=== PATIENT | female | born 1975 | race Caucasian/White ===

== ENCOUNTER 2016-11-02 17:13 | Emergency (ER) | payer SELFPAY ==
[2016-11-02] MEDS ORDERED: Aspirin 81 MG Tab.Chew PO ONE (17:42)
--- NOTE | 2016-11-02 18:10 | EDM.PDOC ---
ED HISTORY OF PRESENT ILLNESS - General Chief Complaint: Chest Pain Stated Complaint: CHEST PN, SHAKEY, DIZZY Time Seen by Provider: 11/02/16 17:28 Source of Information: Reports: Patient, RN notes reviewed - History of Present Illness INITIAL COMMENTS - FREE TEXT/NARRATIVE: 40 year old female comes in with onset of palpiations last evening continuing today. Was started on prednisone 3 days ago for rash upper abd and back. Did not take the prednisone today after onset of palpitations last evening. Also feels achy and burning discomfort upper mid abd without radiation. No pain up into chest or into shoulder or arm. No nausea, vomiting, cough, fever or chills. She does smoke. Family hx heart problems. Admits to drinking quite a bit of coffee and soda daily. 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 Other Musculoskeletal History: Left shoulder - Past Surgical History HEENT Surgical History: Reports: Other (see below) Other HEENT Surgeries/Procedures: wisdom teeth GI Surgical History: Reports: Cholecystectomy Female Surgical History: Reports: Tubal ligation Musculoskeletal Surgical History: Reports: Other (see below) Other Musculoskeletal Surgeries/Procedures:: bunion surgery; and surgery for broken arm Social & Family History - Tobacco Use Smoking Status *Q: Current Every Day Smoker Years of Tobacco use: 27 Packs/Tins Daily: 0.5 Second Hand Smoke Exposure: Yes - Caffeine Use Caffeine Use: Reports: Coffee, Soda - Alcohol Use Days Per Week of Alcohol Use: 0 - Recreational Drug Use Recreational Drug Use: No Drug Use in Last 12 Months: No ED ROS GENERAL - Review of Systems Review Of Systems: See Below Constitutional: Denies: fever, chills, diaphoresis HEENT: Denies: Sinus problem, Throat pain Respiratory: Denies: Shortness of Breath, Wheezing, Pleuritic Chest Pain, Cough Cardiovascular: Reports: Palpitations. Denies: Chest pain, Lightheadedness GI/Abdominal: Reports: Abdominal pain (upper mid abd) Musculoskeletal: Denies: neck pain, shoulder pain, arm pain, back pain Skin: Reports: no symptoms Neurological: Denies: Numbness, Tingling ED EXAM, GENERAL - Physical Exam Exam: See Below General Appearance: alert, anxious Eye Exam: bilateral eye: PERRL Throat/Mouth: Normal inspection, Normal oropharynx Head: atraumatic. No: facial swelling Neck: supple, full range of motion Respiratory/Chest: no respiratory distress, lungs clear, normal breath sounds. No: rhonchi, wheezing, stridor Cardiovascular: regular rate, rhythm GI/Abdominal: soft, tender (mild tenderness upper mid abd) Back Exam: No: CVA tenderness (L), CVA tenderness (R) Extremities: normal inspection, normal range of motion. No: pedal edema, leg pain Neurological: alert, oriented, no motor/sensory deficits Skin Exam: Warm, Dry, Normal color EKG INTERPRETATION EKG Date: 11/02/16 Rhythm: NSR Rate (beats/min): 81 ST-T: depressed (t waves are mildly depressed inf. leads, mild st depression V3- V6) Course - Vital Signs Last Recorded V/S: Last Vital Signs Temp 98.4 F 11/02/16 17:22 Pulse 63 11/02/16 19:34 Resp 14 11/02/16 19:34 BP 116/79 11/02/16 19:34 Pulse Ox 100 11/02/16 19:34 - Orders/Labs/Meds Orders: Active Orders 24 hr Category Date Time Status EKG Documentation Completion [RC] URGENT Care 11/02/16 17:31 Active Labs: Laboratory Tests 11/02/16 11/02/16 Range/Units 17:55 17:55 WBC 9.22 (3.98-10.04) K/mm3 RBC 4.25 (3.98-5.22) M/mm3 Hgb 13.0 (11.2-15.7) gm/L Hct 39.7 (34.1-44.9) % MCV 93.4 (79.4-94.8) fl MCH 30.6 (25.6-32.2) pg MCHC 32.7 (32.2-35.5) g/dl RDW Std Deviation 45.8 (36.4-46.3) fL Plt Count 345 (182-369) K/mm3 MPV 9.0 L (9.4-12.3) fl Neut % (Auto) 44.0 (34.0-71.1) % Lymph % (Auto) 46.0 (19.3-51.7) % Orange % (Auto) 8.0 (4.7-12.5) % Eos % (Auto) 1.5 (0.7-5.8) Baso % (Auto) 0.2 (0.1-1.2) % Neut # (Auto) 4.05 (1.56-6.13) K/mm3 Lymph # (Auto) 4.24 H (1.18-3.74) K/mm3 Orange # (Auto) 0.74 H (0.24-0.36) K/mm3 Eos # (Auto) 0.14 (0.04-0.36) K/mm3 Baso # (Auto) 0.02 (0.01-0.08) K/mm3 Sodium 143 (136-145) mEq/L Potassium 3.3 L (3.5-5.1) mEq/L Chloride 107 (98-107) mEq/L Carbon Dioxide 28 (21-32) mEq/L Anion Gap 11.3 (5-15) BUN 11 (7-18) mg/dL Creatinine 0.9 (0.55-1.02) mg/dL Est Cr Clr Drug Dosing 65.06 mL/min Estimated GFR (MDRD) > 60 (>60) mL/min BUN/Creatinine Ratio 12.2 L (14-18) Glucose 103 (74-106) mg/dL Calcium 8.9 (8.5-10.1) mg/dL Total Bilirubin 0.2 (0.2-1.0) mg/dL AST 6 L (15-37) U/L ALT 14 (14-59) U/L Alkaline Phosphatase 58 (46-116) U/L Troponin I < 0.017 (0.00-0.056) ng/mL Total Protein 6.6 (6.4-8.2) g/dl Albumin 3.6 (3.4-5.0) g/dl Globulin 3.0 gm/dL Albumin/Globulin Ratio 1.2 (1-2) Meds: Medications Discontinued Medications Generic Name Dose Route Start Last Admin Trade Name Freq PRN Reason Stop Dose Admin Aspirin 324 mg 11/02/16 17:42 11/02/16 17:53 Aspirin PO 11/02/16 17:43 324 mg ONETIME ONE Administration - Re-Assessments/Exams Free Text/Narrative Re-Assessment/Exam: 11/03/16 17:20 labs are good, trop neg as expected. K+ mildly low at 3.3, discharge instr. as documented. Departure - Departure Time of Disposition: 19:22 Disposition: Home, Self-Care 01 Condition: fair Clinical Impression: Heart palpitations, Hypokalemia Gastritis Qualifiers: Gastritis type: unspecified gastritis Chronicity: acute Gastritis bleeding: without bleeding Qualified Code(s): K29.00 - Acute gastritis without bleeding Instructions: Gastritis, Adult, [id number], Hypokalemia, Palpitations, Easy- to-Read Referrals: PCP,None [Primary Care Provider] - Forms: ED Department Discharge Additional Instructions: your potassium is mildly low this evening, fruit and vegetables are good natural sources of potassium, bananas and potatoes in particular, drink plenty of water to maintain hydration, continue to not take further prednisone, try reduce caffiene intake, stop smoking, try get out walk, exercise as much as you can. Follow up with your regular medical provider as needed, return to ED as needed. - My Orders Last 24 Hours: My Active Orders 11/02/16 17:31 EKG Documentation Completion [RC] URGENT - Assessment/Plan Last 24 Hours: My Active Orders 11/02/16 17:31 EKG Documentation Completion [RC] URGENT
[2016-11-02 19:38] VITALS: BP 116/79
== END 2016-11-02 19:34 | disposition home or self-care (01) ==
LOC: JD.ED 17:13
DX: R00.2 Palpitations (principal); K29.00 Acute gastritis without bleeding; E87.6 Hypokalemia; K21.9 Gastro-esophageal reflux disease without esophagitis; F17.200 Nicotine dependence, unspecified, uncomplicated; Z79.899 Other long term (current) drug therapy
CPT/HCPCS: 36415; 80053; 84484; 85025; 93005; 99285; A9270; 99284

== ENCOUNTER 2016-12-02 08:07 | Day surgery (SDC) | payer SELFPAY ==
[~2016-12-02 08:07] MED LIST: Lactated Ringers 1,000 ML IV SCH; Lidocaine 1%/Sod Bicarbonate in NS 8.4% 1 ML Syringe IV PRN; Sodium Chloride 0.9% 10 ML Syringe FLUSH PRN
--- NOTE | 2016-12-02 08:46 | PCM.PREANE ---
Preanesthetic Assessment - Anesthesia/Transfusion/Family Hx Anesthesia History: Prior Anesthesia Without Reaction Family History of Anesthesia Reaction: No Transfusion History: No Prior Transfusion(s) - Review of Systems General: No Symptoms Pulmonary: No Symptoms Cardiovascular: No Symptoms, Palpitations (1 month ago in ER- since stopped because of low K and prednisone) Gastrointestinal: Abdominal pain Neurological: No Symptoms Other: Reports: None - Physical Assessment NPO Status Date: 12/01/16 NPO Status Time: 22:00 O2 Sat by Pulse Oximetry: 100 Respiratory Rate: 16 Vital Signs: Last Vital Signs Temp 97.3 F 12/02/16 08:15 Pulse 72 12/02/16 08:15 Resp 16 12/02/16 08:15 BP 109/74 12/02/16 08:15 Pulse Ox 100 12/02/16 08:15 Height: 5 ft 2 in Weight: 70.307 kg ASA Class: 2 Mental Status: Alert & Oriented x3 Airway Class: Mallampati = 1 Dentition: Reports: Normal Dentition Thyro-Mental Finger Breadths: 3 Mouth Opening Finger Breadths: 3 ROM/Head Extension: Full Lungs: Clear to auscultation, Normal respiratory effort Cardiovascular: Regular Rate, Regular Rhythm - Allergies Allergies/Adverse Reactions: Allergies Allergy/AdvReac Type Severity Reaction Status Date / Time No Known Allergies Allergy Verified 12/01/16 15:29 - Blood Blood Available: No - Acknowledgements Anesthesia Type Planned: MAC Pt an Appropriate Candidate for the Planned Anesthesia: Yes Alternatives and Risks of Anesthesia Discussed w Pt/Guardian: Yes Pt/Guardian Understands and Agrees with Anesthesia Plan: Yes PreAnesthesia Questionnaire HEENT History: Reports: Impaired vision Other HEENT History: wears glasses, pharyngitis Cardiovascular History: Reports: None Respiratory History: Reports: None Gastrointestinal History: Reports: Chronic constipation, GERD, Helicobacter pylori Other Gastrointestinal History: epigastric pain Genitourinary History: Reports: None 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 , Other (see below) Other OB/BYN History: ovarian cyst, bilateral salpingectomy Other Musculoskeletal History: humerus fracture, impingment syndrome of R shoulder AC joint, rotator cuff impingment syndrome Neurological History: Reports: None Psychiatric History: Reports: Addiction, Other (see below) Other Psychiatric History: tobacco use disorder Endocrine/Metabolic History: Reports: None Hematologic History: Reports: None Immunologic History: Reports: None Oncologic (Cancer) History: Reports: None Dermatologic History: Reports: Other (see below) Other Dermatologic History: rash to back - Past Surgical History HEENT Surgical History: Reports: Other (see below) Other HEENT Surgeries/Procedures: wisdom teeth GI Surgical History: Reports: Cholecystectomy Female Surgical History: Reports: Tubal ligation Musculoskeletal Surgical History: Reports: Other (see below) Other Musculoskeletal Surgeries/Procedures:: bunion surgery; L shoulder arthroscopy, Foot surgery, Open treatment of humeral shaft fracture with implant - History Comment History Comment: off prilosec for 3 weeks - SUBSTANCE USE Smoking Status *Q: Current Every Day Smoker Tobacco Use Within Last Twelve Months: Cigarettes Second Hand Smoke Exposure: Yes Days Per Week of Alcohol Use: 0 Recreational Drug Use History: No - HOME MEDS Home Medications: Home Meds Omeprazole [Prilosec] 20 mg PO DAILY PRN 11/20/14 [History] Ibuprofen [Advil Liqui-Gels] 1 - 2 tab PO TID PRN 12/01/16 [History] hydrOXYzine HCl [Atarax] 25 mg PO DAILY 12/01/16 [History] - CURRENT (IN HOUSE) MEDS Current Meds: Current Medications Lactated Ringer's (Ringers, Lactated) 1,000 mls @ 125 mls/hr IV ASDIRECTED BOO Stop: 12/02/16 23:00 Last Admin: 12/02/16 08:30 Dose: 125 mls/hr Lidocaine/Sodium Bicarbonate (Buffered Lidocaine 1% In Ns 8.4%) 0.25 ml IV ONETIME PRN PRN Reason: Prior to IV Start Stop: 12/02/16 18:00 Last Admin: 12/02/16 08:29 Dose: 0.25 ml Sodium Chloride (Saline Flush) 10 ml FLUSH ASDIRECTED PRN PRN Reason: Keep Vein Open Stop: 12/02/16 18:00
[2016-12-02] MEDS ORDERED: Midazolam 1 MG/ML 2 ML SDV ONE (10:41)
[2016-12-02] MEDS ORDERED: Lidocaine 1% 4 ML ONE (10:41)
[2016-12-02] MEDS ORDERED: fentaNYL 100 MCG/2 ML SDV ONE (10:41)
[2016-12-02] MEDS ORDERED: Propofol 200 MG/20 ML SDV ONE (10:41)
--- NOTE | 2016-12-02 11:10 | PCM.OPNOTE ---
- General Post-Op/Procedure Note Date of Surgery/Procedure: 12/02/16 Operative Procedure(s): EGD with GE junction and proximal esophageal biopsies Findings: normal EGD Pre Op Diagnosis: chronic GERD Post-Op Diagnosis: normal endoscopic exam Anesthesia Technique: MAC, Moderate sedation Primary Surgeon: Crow Foley Pathology: proximal and distal esophageal biopsies EBL in mLs: 0 Complications: None Condition: Good Free Text/Narrative:: After adequate IV sedation and analgesia was obtained the patient was placed on her left side. Through a bite-block lubricated upper endoscope was easily inserted into the esophagus then advanced under direct vision towards the stomach. Additional air was given here. The scope was then introduced into the duodenum through the pylorus. I advanced into the distal second part of the duodenum. The second, and first portions were endoscopically normal with no inflammatory changes or mass lesions seen. The antrum likewise was unremarkable as well. In the retroflexed view the fundus was normal. There was no hiatal hernia. The body of the stomach had normal. The rugal folds were grossly normal as well as gastric motility. No inflammatory changes were seen in these areas. The scope was withdrawn to the GE junction, which was unremarkable endoscopically. Given her history I took two random biopsies of this area with cold forceps. The body of the esophagus was unremarkable. Two additional random biopsies were taken in the proximal third of the esophagus. Air was removed, as I finished the procedure, which she tolerated well. Canvas Marker photographs were taken for the patient and for the record.
[2016-12-02 12:32] VITALS: BP 92/56
== END 2016-12-02 11:46 | disposition home or self-care (01) ==
LOC: JD.SDS 08:07
PROVIDERS: ATTEND Surgery
PROC: 0DB48ZX Excision of Esophagogastric Junction, Via Natural or Artificial Opening Endoscopic, Diagnostic (ICD-10-PCS; principal; 2016-12-02)
PROC: 0DB18ZX Excision of Upper Esophagus, Via Natural or Artificial Opening Endoscopic, Diagnostic (ICD-10-PCS; 2016-12-02)
DX: K21.9 Gastro-esophageal reflux disease without esophagitis (principal); R14.0 Abdominal distension (gaseous); Z90.49 Acquired absence of other specified parts of digestive tract; Z79.899 Other long term (current) drug therapy; F17.210 Nicotine dependence, cigarettes, uncomplicated
CPT/HCPCS: 43239; 88305; J2250; J3010; J7120; J2704

== ENCOUNTER 2018-03-22 19:01 | Emergency (ER) | payer SELFPAY ==
[2018-03-22 19:21] VITALS: BP 127/88
--- NOTE | 2018-03-22 20:10 | EDM.PDOC ---
ED HPI GENERAL MEDICAL PROBLEM - General Chief Complaint: Abdominal Pain Stated Complaint: abdominal burning/bloating/pain Time Seen by Provider: 03/22/18 19:12 Source of Information: Reports: Patient History Limitations: Reports: No Limitations - History of Present Illness INITIAL COMMENTS - FREE TEXT/NARRATIVE: The patient states that her abdomen has felt bloated for about one week, and she has had epigastric pain that radiates through to her mid-back for about 2 days. She states that she has had the bloating sensation on and off for over a year. An EGD performed by Dr. Foley last year was reportedly negative. She states that she had similar symptoms 2 or 3 weeks ago. She thought that she was constipated. She took ffsj-ome-bocaoni Mg-citrate with no relief, then an enema with only a small stool output, followed by an oral laxative, which also produced a small bowel movement, but then the bloating symptoms resolved. She tried Metamucil about one month ago, but stopped after 2 days. The patient states that she took MiraLAX, Gas-X, and the herbal medicine Noel-Lakisha today, all without relief. The patient states that she has a history of GERD, for which she takes omeprazole. She states that if she fails to take her omeprazole, she developed significant heartburn, but that her current symptoms are not the same as heartburn. No recent nausea or emesis. The patient believes that she is constipated, with her last bowel movement this past 03/19/2018. She says that it was initially hard, then changed to diarrhea. No urinary symptoms. No recent fever. The patient's PCP is Cheryle Wilson, who has not been notified of the patient's symptoms. 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), Other (See Below) ( Ovarian cysts) Musculoskeletal History: Reports: Fracture (left humerus) - Past Surgical History HEENT Surgical History: Reports: Oral Surgery (wisdom teeth extraction) GI Surgical History: Reports: Cholecystectomy (around 1999), Hernia, Abdominal ( Incisional) Female Surgical History: Reports: D&C (x 3), Salpingo-Oophorectomy (bilateral ), Tubal Ligation Musculoskeletal Surgical History: Reports: Arthroscopic Procedure (left shoulder ), ORIF (let humerus), Other (See Below) (Bilateral bunionectomy) - History Comment History Comment: off prilosec for 3 weeks Social & Family History - Tobacco Use Smoking Status *Q: Current Every Day Smoker Years of Tobacco use: 30 Packs/Tins Daily: 0.5 Packs/Tins Daily Comment: Down from 1 ppd - Caffeine Use Caffeine Use: Reports: Coffee, Soda - Alcohol Use Alcohol Use History: Yes Alcohol Use Frequency: Socially - Recreational Drug Use Recreational Drug Use: No - Living Situation & Occupation Living situation: Reports: , with Spouse Occupation: Employed ([employer] at [employer]) ED ROS GENERAL - Review of Systems Review Of Systems: ROS reveals no pertinent complaints other than HPI. ED EXAM, GI/ABD - Physical Exam Exam: See Below Exam Limited By: No Limitations General Appearance: Alert, WD/WN, No Apparent Distress Eyes: Bilateral: Normal Appearance, EOMI Ears: Normal External Exam, Hearing Grossly Normal Nose: Normal Inspection, No Blood Throat/Mouth: Normal Inspection, Normal Lips, Normal Voice, No Airway Compromise Head: Atraumatic, Normocephalic Neck: Normal Inspection, Full Range of Motion Respiratory/Chest: No Respiratory Distress, Lungs Clear, Normal Breath Sounds, No Accessory Muscle Use Cardiovascular: Normal Peripheral Pulses, Regular Rate, Rhythm, No Edema, No Gallop, No JVD, No Murmur, No Rub GI/Abdominal Exam: Normal Bowel Sounds, Soft, No Organomegaly, No Distention, No Abnormal Bruit, No Mass, Tender (Palpation of the right upper quadrant induces pain in the epigastric region, but the epigastric region itself is not tender. Nontender elsewhere.) (Female) Exam: Deferred Rectal (Female) Exam: Deferred Back Exam: Normal Inspection, Full Range of Motion. No: CVA Tenderness (L), CVA Tenderness (R) Extremities: Normal Inspection, Normal Range of Motion, No Pedal Edema, Normal Capillary Refill Neurological: Alert, Oriented, Normal Cognition, No Motor/Sensory Deficits Psychiatric: Normal Affect Skin Exam: Warm, Dry, Intact, Normal Color, No Rash Course - Vital Signs Last Recorded V/S: Last Vital Signs Temp 36.1 C 03/22/18 19:19 Pulse 83 03/22/18 19:19 Resp 16 03/22/18 19:19 BP 127/88 03/22/18 19:19 Pulse Ox 100 03/22/18 19:19 - Orders/Labs/Meds Orders: Active Orders 24 hr Category Date Time Status Abdomen 1V Upright [CR] Stat Exams 03/22/18 20:08 Taken HCG QUALITATIVE,URINE [URCHEM] Stat Lab 03/22/18 20:20 Ordered UA W/MICROSCOPIC [URIN] Stat Lab 03/22/18 20:20 Ordered Labs: Laboratory Tests 03/22/18 03/22/18 03/22/18 Range/Units 20:18 20:18 20:20 WBC 6.65 (3.98-10.04) K/mm3 RBC 4.25 (3.98-5.22) M/mm3 Hgb 12.7 (11.2-15.7) gm/L Hct 39.3 (34.1-44.9) % MCV 92.5 (79.4-94.8) fl MCH 29.9 (25.6-32.2) pg MCHC 32.3 (32.2-35.5) g/dl RDW Std Deviation 45.1 (36.4-46.3) fL Plt Count 378 H (182-369) K/mm3 MPV 9.0 L (9.4-12.3) fl Neutrophils % (Manual) 46 (40-60) % Band Neutrophils % 1 (0-10) % Lymphocytes % (Manual) 48 H (20-40) % Atypical Lymphs % 0 % Monocytes % (Manual) 2 (2-10) % Eosinophils % (Manual) 3 (0.7-5.8) % Basophils % (Manual) 0 L (0.1-1.2) Platelet Estimate Adequate RBC Morph Comment Normal Sodium 141 (136-145) mEq/L Potassium 3.9 (3.5-5.1) mEq/L Chloride 106 (98-107) mEq/L Carbon Dioxide 28 (21-32) mEq/L Anion Gap 10.9 (5-15) BUN 10 (7-18) mg/dL Creatinine 0.9 (0.55-1.02) mg/dL Est Cr Clr Drug Dosing 60.82 mL/min Estimated GFR (MDRD) > 60 (>60) mL/min BUN/Creatinine Ratio 11.1 L (14-18) Glucose 98 (74-106) mg/dL Calcium 9.0 (8.5-10.1) mg/dL Total Bilirubin 0.2 (0.2-1.0) mg/dL AST 12 L (15-37) U/L ALT 16 (14-59) U/L Alkaline Phosphatase 70 (46-116) U/L Total Protein 6.8 (6.4-8.2) g/dl Albumin 3.4 (3.4-5.0) g/dl Globulin 3.4 gm/dL Albumin/Globulin Ratio 1.0 (1-2) Lipase 141 (73-393) U/L Urine Color Yellow (Yellow) Urine Appearance Clear (Clear) Urine pH 7.0 (5.0-8.0) Ur Specific Fairchild 1.015 (1.005-1.030) Urine Protein Negative (Negative) Urine Glucose (UA) Negative (Negative) Urine Ketones Negative (Negative) Urine Occult Blood Negative (Negative) Urine Nitrite Negative (Negative) Urine Bilirubin Negative (Negative) Urine Urobilinogen 0.2 (0.2-1.0) Ur Leukocyte Esterase Negative (Negative) Urine RBC 0-5 (0-5) /hpf Urine WBC 0-5 (0-5) /hpf Ur Epithelial Cells 0-5 (0-5) /hpf Urine Bacteria Occasional (FEW) /hpf Urine Mucus Not seen (FEW) /hpf Urine HCG, Qual (NEGATIVE) 03/22/18 Range/Units 20:20 WBC (3.98-10.04) K/mm3 RBC (3.98-5.22) M/mm3 Hgb (11.2-15.7) gm/L Hct (34.1-44.9) % MCV (79.4-94.8) fl MCH (25.6-32.2) pg MCHC (32.2-35.5) g/dl RDW Std Deviation (36.4-46.3) fL Plt Count (182-369) K/mm3 MPV (9.4-12.3) fl Neutrophils % (Manual) (40-60) % Band Neutrophils % (0-10) % Lymphocytes % (Manual) (20-40) % Atypical Lymphs % % Monocytes % (Manual) (2-10) % Eosinophils % (Manual) (0.7-5.8) % Basophils % (Manual) (0.1-1.2) Platelet Estimate RBC Morph Comment Sodium (136-145) mEq/L Potassium (3.5-5.1) mEq/L Chloride (98-107) mEq/L Carbon Dioxide (21-32) mEq/L Anion Gap (5-15) BUN (7-18) mg/dL Creatinine (0.55-1.02) mg/dL Est Cr Clr Drug Dosing mL/min Estimated GFR (MDRD) (>60) mL/min BUN/Creatinine Ratio (14-18) Glucose (74-106) mg/dL Calcium (8.5-10.1) mg/dL Total Bilirubin (0.2-1.0) mg/dL AST (15-37) U/L ALT (14-59) U/L Alkaline Phosphatase (46-116) U/L Total Protein (6.4-8.2) g/dl Albumin (3.4-5.0) g/dl Globulin gm/dL Albumin/Globulin Ratio (1-2) Lipase (73-393) U/L Urine Color (Yellow) Urine Appearance (Clear) Urine pH (5.0-8.0) Ur Specific Fairchild (1.005-1.030) Urine Protein (Negative) Urine Glucose (UA) (Negative) Urine Ketones (Negative) Urine Occult Blood (Negative) Urine Nitrite (Negative) Urine Bilirubin (Negative) Urine Urobilinogen (0.2-1.0) Ur Leukocyte Esterase (Negative) Urine RBC (0-5) /hpf Urine WBC (0-5) /hpf Ur Epithelial Cells (0-5) /hpf Urine Bacteria (FEW) /hpf Urine Mucus (FEW) /hpf Urine HCG, Qual Negative (NEGATIVE) - Re-Assessments/Exams Free Text/Narrative Re-Assessment/Exam: 03/22/18 20:09 The patient is complaining of feeling bloated for the past week and epigastric pain radiating through to the center of her back, not consistent with her usual GERD, for the past 2 days. She is concerned that she is constipated. Her abdominal exam reveals epigastric pain when her right upper quadrant is palpated , but her epigastric region itself is not that tender, and there is no tenderness elsewhere. Her abdomen is soft with normal bowel sounds. I ordered an upright abdominal radiographs, along with blood work, urinalysis, and a urine test. 03/22/18 20:32 Upright abdominal radiograph appears to be grossly normal. Nonspecific bowel gas pattern. No excessive air or stool. No free air. Post cholecystectomy clips incidentally noted. Formal read per the Radiologist pending. 03/22/18 21:40 Test results discussed with the patient. Samson's workup is entirely unremarkable, and does not explain the cause of the patient's symptoms. She does not have pancreatitis. I offered to refer the patient to Dr. Oneil, however, the patient would prefer to follow-up with her PCP, Cheryle Wilson. I suggested that the patient talk to Ms. Wilson about a referral to a [employer] [facility]. Is also noted that the patient's oxygen saturation is 100% on room air, raising the possibility that the patient's symptoms may be related to anxiety. Departure - Departure Time of Disposition: 21:43 Disposition: Home, Self-Care 01 Condition: Good Clinical Impression: Epigastric abdominal pain of unknown etiology, Bloating symptom - Discharge Information *PRESCRIPTION DRUG MONITORING PROGRAM REVIEWED*: Not Applicable *COPY OF PRESCRIPTION DRUG MONITORING REPORT IN PATIENT FRAN[place]: Not Applicable Instructions: Abdominal Bloating, Abdominal Pain, Adult, [id number] Referrals: Cheryle Wilson, LEAD FIRE PROTECTION ENGINEER [ED Midlevel Provider] - Forms: ED Department Discharge Additional Instructions: You were seen in the emergency room for a recurrent bloating sensation and upper abdominal pain. Workup in the ER included blood work, a urinalysis, a urine test, and upright abdominal x-ray. Your entire workup was unremarkable, and does not explain the cause of your symptoms. No excessive gas or stool was seen on your x-ray - you are not constipated. You do not have pancreatitis. There is no sign of an infection. Your electrolytes are entirely normal. You do not have a urinary tract infection. You are not . Follow-up with your PCP, Cheryle Wilson, at the next available appointment. Consider discussing with her a referral to a [facility] in [place], for a more thorough evaluation. If any other problems, please do not hesitate to return to the ER. - My Orders Last 24 Hours: My Active Orders 03/22/18 20:08 Abdomen 1V Upright [CR] Stat 03/22/18 20:20 HCG QUALITATIVE,URINE [URCHEM] Stat UA W/MICROSCOPIC [URIN] Stat - Assessment/Plan Last 24 Hours: My Active Orders 03/22/18 20:08 Abdomen 1V Upright [CR] Stat 03/22/18 20:20 HCG QUALITATIVE,URINE [URCHEM] Stat UA W/MICROSCOPIC [URIN] Stat
--- NOTE | 2018-03-23 09:43 | CR ---
Abdomen: Upright view of the abdomen was obtained. Comparison: Prior abdominal x-ray of 12/05/14. Bowel gas pattern appears normal. Surgical clips are seen from prior cholecystectomy. No free air is seen. Bony structures are unremarkable. Impression: 1. Incidental finding. Nothing acute is seen. Diagnostic code #2
== END 2018-03-22 21:57 | disposition home or self-care (01) ==
LOC: JD.ED 19:01
DX: R14.0 Abdominal distension (gaseous) (principal); R10.13 Epigastric pain; F17.210 Nicotine dependence, cigarettes, uncomplicated; Z79.899 Other long term (current) drug therapy
CPT/HCPCS: 36415; 74018; 74018-26; 80053; 81001; 81025; 83690; 85007; 85027; 99284

== ENCOUNTER 2019-06-19 18:06 | Emergency (ER) | payer SELFPAY ==
[2019-06-19 18:15] VITALS: BP 131/83; PULSE 90
[2019-06-19] MEDS ORDERED: Alum Hydrox/Mag Hydrox/Simeth 30 ML, Lidocaine 2% 10 ML PO ONE ×2 (18:26)
[2019-06-19] MEDS ORDERED: Sodium Chloride 0.9% 10 ML Syringe FLUSH PRN (18:26)
[2019-06-19] MEDS ORDERED: FLU Vacc QS2019-20(6MOS+)/PF 60 MCG/0.5 ML SYRINGE IM ONE (18:30)
--- NOTE | 2019-06-19 18:32 | EDM.PDOC ---
ED HPI GENERAL MEDICAL PROBLEM - General Chief Complaint: Abdominal Pain Stated Complaint: CHEST PAIN X 2 DAYS Time Seen by Provider: 06/19/19 18:35 - History of Present Illness INITIAL COMMENTS - FREE TEXT/NARRATIVE: The patient is an unfortunate 43-year-old obese female who presents emergency Department today with complaint of epigastric and left upper quadrant abdominal pain. Patient reports she was in her normal state of health until 3 days ago when she started having left upper quadrant epigastric abdominal pain. Patient reports that she had similar episode 2 months ago and was seen by her PCP and at that time she had a CT scan which showed "inflammation of the bowel" . Patient was placed on antibiotics reports her symptoms improved and then resolved. Until 3 days ago when she started having symptoms again. Patient reports she has a crampy-type epigastric and left upper quadrant abdominal pain which worsened after eating this evening which caused her to became concerns is she presented to the emergency department for evaluation. No nausea, no vomiting , no fever, no hematemesis, no hematochezia, no melena, no chest pain, no shortness of breath. Patient was seen here in March of this year or similar symptoms and was noted to have had an EGD done here 2 years ago which was "unremarkable". Patient does have a PCP who reportedly put her on some IBS medication which she was unable to afford so she did not take Patient does report she has a history of constipation and has been taking laxatives daily and then last evening she took magnesium citrate in order to ensure that she had a bowel movement patient had multiple bowel movements today which were "normal". Left Upper Abdomen Pain Score (Numeric/FACES): 7 - Related Data Allergies Allergy/AdvReac Type Severity Reaction Status Date / Time No Known Allergies Allergy Verified 06/19/19 18:15 Home Meds: Home Meds Omeprazole [Prilosec] 20 mg PO DAILY 11/20/14 [History] Levothyroxine Sodium [Synthroid] 50 mcg PO ACBREAKFAST 06/19/19 [History] Sennosides/Docusate Sodium [Senna-S] 2 tab PO DAILY 06/19/19 [History] Past Medical History HEENT History: Reports: Impaired Vision Other HEENT History: wears glasses Cardiovascular History: Reports: None Respiratory History: Reports: None Gastrointestinal History: Reports: GERD Other Gastrointestinal History: epigastric pain Genitourinary History: Reports: None 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 , Other (See Below) 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: ovarian 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, bilateral salpingectomy Musculoskeletal History: Reports: Fracture Other Musculoskeletal History: humerus fracture, impingment syndrome of R shoulder AC joint, rotator cuff impingment syndrome Neurological History: Reports: None Psychiatric History: Reports: Addiction, Other (See Below) Other Psychiatric History: tobacco use disorder Endocrine/Metabolic History: Reports: None Hematologic History: Reports: None Immunologic History: Reports: None Oncologic (Cancer) History: Reports: None Dermatologic History: Reports: Other (See Below) Other Dermatologic History: rash to back - Past Surgical History HEENT Surgical History: Reports: Oral Surgery GI Surgical History: Reports: Cholecystectomy, Hernia, Abdominal Female Surgical History: Reports: D&C, Salpingo-Oophorectomy, Tubal Ligation Musculoskeletal Surgical History: Reports: Arthroscopic Procedure, ORIF, Other ( See Below) - History Comment History Comment: off prilosec for 3 weeks Social & Family History - Tobacco Use Smoking Status *Q: Current Every Day Smoker Years of Tobacco use: 30 Packs/Tins Daily: 0.5 - Caffeine Use Caffeine Use: Reports: Coffee, Soda - Recreational Drug Use Recreational Drug Use: No - Living Situation & Occupation Living situation: Reports: , with Spouse Occupation: Employed ([employer]) ED ROS GENERAL - Review of Systems Review Of Systems: See Below Constitutional: Denies: Fever, Chills HEENT: Reports: No Symptoms Respiratory: Reports: No Symptoms Cardiovascular: Reports: No Symptoms Endocrine: Reports: No Symptoms GI/Abdominal: Reports: Abdominal Pain, Constipation. Denies: Bloody Stool, Diarrhea : Reports: No Symptoms Musculoskeletal: Reports: No Symptoms Skin: Reports: No Symptoms Neurological: Reports: No Symptoms Psychiatric: Reports: No Symptoms Hematologic/Lymphatic: Reports: No Symptoms Immunologic: Reports: No Symptoms ED EXAM, GI/ABD - Physical Exam Exam: See Below Exam Limited By: No Limitations General Appearance: Alert, WD/WN, Anxious, Mild Distress Throat/Mouth: Normal Inspection, Normal Lips, Normal Teeth, Normal Gums, Normal Oropharynx, Normal Voice, No Airway Compromise Head: Atraumatic, Normocephalic Neck: Normal Inspection, Supple, Non-Tender, Full Range of Motion Respiratory/Chest: No Respiratory Distress, Lungs Clear, Normal Breath Sounds, No Accessory Muscle Use, Chest Non-Tender Cardiovascular: Normal Peripheral Pulses, Regular Rate, Rhythm, No Edema, No Gallop, No JVD, No Murmur, No Rub GI/Abdominal Exam: Normal Bowel Sounds, Soft, Tender (Epigastric and left upper quadrant tenderness mild) Back Exam: Normal Inspection, Full Range of Motion, NT Extremities: Normal Inspection, Normal Range of Motion, Non-Tender, Normal Capillary Refill, No Pedal Edema Neurological: Alert, Oriented, CN II-XII Intact, Normal Cognition, Normal Gait, Normal Reflexes, No Motor/Sensory Deficits EKG INTERPRETATION EKG Date: 06/19/19 Time: 18:35 Rhythm: NSR [place]: Normal P-Wave: Present QRS: Normal ST-T: Normal QT: Normal Course - Vital Signs Last Recorded V/S: Last Vital Signs Temp 95.8 F 06/19/19 18:10 Pulse 90 06/19/19 18:10 Resp 16 06/19/19 18:10 BP 131/83 06/19/19 18:10 Pulse Ox 100 06/19/19 18:10 - Orders/Labs/Meds Orders: Active Orders 24 hr Category Date Time Status EKG Documentation Completion [RC] ASDIRECTED Care 06/19/19 18:26 Active Influenza Vaccine Charge [RC] .DISCHARGE Care 06/19/19 18:27 Active Sodium Chloride 0.9% [Saline Flush] Med 06/19/19 18:26 Active 10 ml FLUSH ASDIRECTED PRN Saline Lock Insert [OM.PC] Stat Oth 06/19/19 18:26 Ordered EKG 12 Lead [EK] Stat Ther 06/19/19 18:26 Ordered Medication Orders Sodium Chloride (Saline Flush) 10 ml FLUSH ASDIRECTED PRN PRN Reason: Keep Vein Open Last Admin: 06/19/19 18:45 Dose: 10 ml Labs: Laboratory Tests 06/19/19 06/19/19 06/19/19 Range/Units 18:44 18:44 18:44 WBC 6.72 (3.98-10.04) K/mm3 RBC 4.46 (3.98-5.22) M/mm3 Hgb 13.0 (11.2-15.7) gm/dl Hct 40.3 (34.1-44.9) % MCV 90.4 (79.4-94.8) fl MCH 29.1 (25.6-32.2) pg MCHC 32.3 (32.2-35.5) g/dl RDW Std Deviation 45.1 (36.4-46.3) fL Plt Count 379 H (182-369) K/mm3 MPV 9.0 L (9.4-12.3) fl Neut % (Auto) 47.8 (34.0-71.1) % Lymph % (Auto) 39.3 (19.3-51.7) % Smith % (Auto) 7.9 (4.7-12.5) % Eos % (Auto) 4.6 (0.7-5.8) Baso % (Auto) 0.4 (0.1-1.2) % Neut # (Auto) 3.21 (1.56-6.13) K/mm3 Lymph # (Auto) 2.64 (1.18-3.74) K/mm3 Smith # (Auto) 0.53 H (0.24-0.36) K/mm3 Eos # (Auto) 0.31 (0.04-0.36) K/mm3 Baso # (Auto) 0.03 (0.01-0.08) K/mm3 Sodium 143 (136-145) mEq/L Potassium 3.9 (3.5-5.1) mEq/L Chloride 108 H (98-107) mEq/L Carbon Dioxide 26 (21-32) mEq/L Anion Gap 12.9 (5-15) BUN 8 (7-18) mg/dL Creatinine 0.9 (0.55-1.02) mg/dL Est Cr Clr Drug Dosing 57.30 mL/min Estimated GFR (MDRD) > 60 (>60) mL/min BUN/Creatinine Ratio 8.9 L (14-18) Glucose 100 (74-106) mg/dL Calcium 8.8 (8.5-10.1) mg/dL Total Bilirubin 0.2 (0.2-1.0) mg/dL AST 8 L (15-37) U/L ALT 18 (14-59) U/L Alkaline Phosphatase 72 (46-116) U/L Troponin I < 0.017 (0.00-0.056) ng/mL Total Protein 7.7 (6.4-8.2) g/dl Albumin 3.7 (3.4-5.0) g/dl Globulin 4.0 gm/dL Albumin/Globulin Ratio 0.9 L (1-2) Lipase 118 (73-393) U/L HCG, Qual Negative (NEGATIVE) Urine Color (Yellow) Urine Appearance (Clear) Urine pH (5.0-8.0) Ur Specific [place] (1.005-1.030) Urine Protein (Negative) Urine Glucose (UA) (Negative) Urine Ketones (Negative) Urine Occult Blood (Negative) Urine Nitrite (Negative) Urine Bilirubin (Negative) Urine Urobilinogen (0.2-1.0) Ur Leukocyte Esterase (Negative) 06/19/19 Range/Units 19:14 WBC (3.98-10.04) K/mm3 RBC (3.98-5.22) M/mm3 Hgb (11.2-15.7) gm/dl Hct (34.1-44.9) % MCV (79.4-94.8) fl MCH (25.6-32.2) pg MCHC (32.2-35.5) g/dl RDW Std Deviation (36.4-46.3) fL Plt Count (182-369) K/mm3 MPV (9.4-12.3) fl Neut % (Auto) (34.0-71.1) % Lymph % (Auto) (19.3-51.7) % Smith % (Auto) (4.7-12.5) % Eos % (Auto) (0.7-5.8) Baso % (Auto) (0.1-1.2) % Neut # (Auto) (1.56-6.13) K/mm3 Lymph # (Auto) (1.18-3.74) K/mm3 Smith # (Auto) (0.24-0.36) K/mm3 Eos # (Auto) (0.04-0.36) K/mm3 Baso # (Auto) (0.01-0.08) K/mm3 Sodium (136-145) mEq/L Potassium (3.5-5.1) mEq/L Chloride (98-107) mEq/L Carbon Dioxide (21-32) mEq/L Anion Gap (5-15) BUN (7-18) mg/dL Creatinine (0.55-1.02) mg/dL Est Cr Clr Drug Dosing mL/min Estimated GFR (MDRD) (>60) mL/min BUN/Creatinine Ratio (14-18) Glucose (74-106) mg/dL Calcium (8.5-10.1) mg/dL Total Bilirubin (0.2-1.0) mg/dL AST (15-37) U/L ALT (14-59) U/L Alkaline Phosphatase (46-116) U/L Troponin I (0.00-0.056) ng/mL Total Protein (6.4-8.2) g/dl Albumin (3.4-5.0) g/dl Globulin gm/dL Albumin/Globulin Ratio (1-2) Lipase (73-393) U/L HCG, Qual (NEGATIVE) Urine Color Yellow (Yellow) Urine Appearance Clear (Clear) Urine pH 6.0 (5.0-8.0) Ur Specific [place] 1.020 (1.005-1.030) Urine Protein Negative (Negative) Urine Glucose (UA) Negative (Negative) Urine Ketones Negative (Negative) Urine Occult Blood Negative (Negative) Urine Nitrite Negative (Negative) Urine Bilirubin Negative (Negative) Urine Urobilinogen 0.2 (0.2-1.0) Ur Leukocyte Esterase Negative (Negative) Meds: Medications Generic Name Dose Route Start Last Admin Trade Name Frekimberley PRN Reason Stop Dose Admin Sodium Chloride 10 ml 06/19/19 18:26 06/19/19 18:45 Saline Flush FLUSH 10 ml ASDIRECTED PRN Administration Keep Vein Open Discontinued Medications Generic Name Dose Route Start Last Admin Trade Name Zaira PRN Reason Stop Dose Admin Al Hydroxide/Mg Hydroxide 30 0 ml 06/19/19 18:26 06/19/19 18:48 ml/ Lidocaine HCl 10 ml PO 06/19/19 18:27 40 ml ONETIME ONE Administration Influenza Virus Vaccine 1 each 06/19/19 18:27 Pharmacy To Dose - Influenza Vaccine IM 06/19/19 18:28 ONETIME ONE Influenza Virus Vaccine 60 mcg 06/19/19 18:30 06/19/19 18:51 Fluzone Quad [id number] Syringe IM 06/19/19 18:31 60 mcg .ONCE ONE Administration - Re-Assessments/Exams Free Text/Narrative Re-Assessment/Exam: 06/19/19 19:33 Patient ports minimal pain, however, lab works are unremarkable at this time feel that another CT this soon would be warranted the patient had a CT abdomen and pelvis last month per her report and her PCPs office I had a lengthy discussion with patient that she needs a follow-up colonoscopy to further workup her chronic abdominal pain will discharge patient home and have her follow-up with her PCP Departure - Departure Time of Disposition: 19:34 Disposition: Home, Self-Care 01 Clinical Impression: Abdominal pain Abdominal pain Qualifiers: Abdominal location: left upper quadrant Qualified Code(s): R10.12 - Left upper quadrant pain - Discharge Information *PRESCRIPTION DRUG MONITORING PROGRAM REVIEWED*: No *COPY OF PRESCRIPTION DRUG MONITORING REPORT IN PATIENT FRANCO: No Referrals: Vijaya Dee NP [Primary Care Provider] - Forms: ED Department Discharge Additional Instructions: Home, rest, return as needed for worsening condition - My Orders Last 24 Hours: My Active Orders 06/19/19 18:26 EKG Documentation Completion [RC] ASDIRECTED Sodium Chloride 0.9% [Saline Flush] 10 ml FLUSH ASDIRECTED PRN Saline Lock Insert [OM.PC] Stat EKG 12 Lead [EK] Stat 06/19/19 18:27 Influenza Vaccine Charge [RC] .DISCHARGE - Assessment/Plan Last 24 Hours: My Active Orders 06/19/19 18:26 EKG Documentation Completion [RC] ASDIRECTED Sodium Chloride 0.9% [Saline Flush] 10 ml FLUSH ASDIRECTED PRN Saline Lock Insert [OM.PC] Stat EKG 12 Lead [EK] Stat 06/19/19 18:27 Influenza Vaccine Charge [RC] .DISCHARGE
== END 2019-06-19 19:42 | disposition home or self-care (01) ==
LOC: JD.ED 18:06
DX: R10.12 Left upper quadrant pain (principal); R10.13 Epigastric pain; K21.9 Gastro-esophageal reflux disease without esophagitis; F17.210 Nicotine dependence, cigarettes, uncomplicated; Z79.899 Other long term (current) drug therapy; Z23 Encounter for immunization
CPT/HCPCS: 36415; 80053; 81003; 83690; 84484; 84703; 85025; 90471; 90686; 93005; 99285; A9270; 93010; 99283

== ENCOUNTER 2020-11-26 12:22 | Emergency (ER) | payer MEDICAID ==
[2020-11-26] MEDS ORDERED: HYDROmorphone 0.5 MG/0.5 ML Syringe IM ONE (12:58)
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
--- NOTE | 2020-11-26 13:53 | CT ---
CT lumbar spine Technique: Multiple axial sections were obtained from above the L1-2 disc inferiorly through the S1-2 disc. Reconstructed coronal and sagittal images were obtained. Findings: Lower disc is labeled as S1-2. There is evidence of enlarged transverse process at the lower level with pseudoarticulation to the sacrum. Vertebral body heights and disc spaces are maintained. Posterior discs are preserved. Sacroiliac joints are normal. No acute fracture or subluxation is seen. Very minimal scattered endplate osteophytes are seen. Impression: 1. Disc space within the lowermost study is labeled as S1-2. There is partial sacralization of enlarged transverse process at this level. 2. Mild scattered anterior endplate osteophytes. 3. No acute osseous abnormality is appreciated. Diagnostic code #2
[2020-11-26] MEDS ORDERED: Orphenadrine 100 MG Tab.ER PO STA (14:01)
[2020-11-26] MEDS ORDERED: Ketorolac 60 MG/2 ML SDV IM ONE (14:01)
[2020-11-26 15:28] VITALS: BP 116/76; PULSE 67
== END 2020-11-26 15:20 | disposition home or self-care (01) ==
LOC: JD.ED 12:22
DX: S39.012A Strain of muscle, fascia and tendon of lower back, initial encounter (principal); K21.9 Gastro-esophageal reflux disease without esophagitis; Z88.1 Allergy status to other antibiotic agents; Z79.899 Other long term (current) drug therapy; W19.XXXA Unspecified fall, initial encounter
CPT/HCPCS: 72131; 96372; 99283; A9270; J1170; J1885; 99284

== ENCOUNTER 2022-05-28 10:37 | Emergency (ER) | payer MEDICAID ==
[2022-05-28] MEDS ORDERED: Dicyclomine 10 MG Cap PO ONE (12:14)
[2022-05-28] MEDS ORDERED: Ondansetron 4 MG Tab.DIS PO ONE (12:14)
[2022-05-28 12:40] LABS: ESTIMATED GFR 62 mL/min (>60)
[2022-05-28 14:16] VITALS: BP 122/65; PULSE 85
== END 2022-05-28 14:00 | disposition home or self-care (01) ==
LOC: JD.ED 10:37
DX: K52.9 Noninfective gastroenteritis and colitis, unspecified (principal); Z79.899 Other long term (current) drug therapy
CPT/HCPCS: 36415; 80053; 83735; 85025; 86140; 87493; 99284; A9270

== ENCOUNTER 2024-08-29 09:36 | Emergency (ER) | payer MEDICAID ==
[2024-08-29 10:19] LABS: BASOPHILS PERCENT AUTO 0.3 % (0.0-1.0); EOSINOPHILS ABSOLUTE AUTO 0.2 K/mm3 (0.0-0.4); EOSINOPHILS PERCENT AUTO 1.6 % (0.0-6.0); HEMATOCRIT 46.8 % (37.0-47.0); HEMOGLOBIN 15.3 gm/dl (12.0-16.0); IMMATURE GRAN ABSOLUTE AUTO 0.05 K/mm3 (0.00-0.05); IMMATURE GRAN PERCENT AUTO 0.4 % (0.0-0.4); LYMPHOCYTES ABSOLUTE AUTO 1.1 K/mm3 (1.0-4.8); MEAN CORPUSCULAR HEMOGLOBIN 29.7 pg (28.0-32.0); MEAN CORPUSCULAR HGB CONC 32.7 g/dl (32.0-36.0); MEAN CORPUSCULAR VOLUME 90.9 fl (83.0-99.0); MEAN PLATELET VOLUME 8.9 fl (9.4-12.3); MONOCYTES ABSOLUTE AUTO 0.9 K/mm3 (0.0-0.8); MONOCYTES PERCENT AUTO 6.7 % (0.0-8.0); NEUTROPHILS ABSOLUTE AUTO 11.5 K/mm3 (1.8-7.7); PLATELET COUNT,PLT 464 K/mm3 (150-400); RED BLOOD CELL COUNT 5.15 M/mm3 (4.10-5.30); WHITE BLOOD CELL COUNT,WBC 13.81 K/mm3 (3.9-11.3)
[2024-08-29] MEDS: Sodium Chloride 0.9% 10 ML Syringe FLUSH PRN (10:26)
[2024-08-29] MEDS: Ondansetron 4 MG/2 ML SDV IVPUSH ONE (10:26)
[2024-08-29] MEDS: Sodium Chloride 0.9% 1,000 ML IV SCH ×2 (10:28→13:04)
[2024-08-29 10:46] LABS: LACTIC ACID 1.7 mmol/L (0.4-2.0)
[2024-08-29 10:55] LABS: ANION GAP 15.8 (5-15); BILIRUBIN TOTAL 0.5 mg/dL (0.2-1.0); BUN/CREATININE RATIO 12.3 (14-18); C-REACTIVE PROTEIN 0.27 mg/dL (<0.30); CALCIUM 9.3 mg/dL (8.5-10.1); CREATININE 1.3 mg/dL (0.55-1.02); EST CRCL DRUG DOSING (CG) 37.6 mL/min; POTASSIUM,K 3.8 mEq/L (3.5-5.1)
[2024-08-29] MEDS: Iopamidol 755 Mg/ML 100 ML Bottle IVPUSH ONE (11:16)
[2024-08-29] MEDS: Sodium Chloride 0.9% 10 ML Syringe FLUSH ONE (11:16)
[2024-08-29] MEDS: diphenhydrAMINE 50 MG/ML SDV IVPUSH ONE (12:39)
[2024-08-29] MEDS: Metoclopramide 10 MG/2 ML SDV IVPUSH ONE (12:41)
[2024-08-29] MEDS: Ketorolac 15 MG/ML SDV IVPUSH ONE (12:43)
[2024-08-29] MEDS: Dicyclomine 10 MG Cap PO ONE (12:47)
[2024-08-29] MEDS: Levofloxacin/Dextrose 5%-Water 750 MG in Premix Bag 1 BAG IV ONE (12:48)
[2024-08-29 13:22] LABS: APPEARANCE,URINE CLEAR (Clear); BILIRUBIN,URINE NEGATIVE (Negative); COLOR,URINE YELLOW (Yellow); GLUCOSE,URINE NEGATIVE (Negative); KETONES,URINE NEGATIVE (Negative); LEUKOCYTE ESTERASE,URINE NEGATIVE (Negative); NITRITE,URINE NEGATIVE (Negative); OCCULT BLOOD,URINE NEGATIVE (Negative); PROTEIN,URINE NEGATIVE (Negative); UROBILINOGEN,URINE 0.2 (0.2-1.0)
[2024-08-29 15:56] VITALS: BP 116/77; PULSE 107
== END 2024-08-29 14:30 | disposition home or self-care (01) ==
LOC: JD.ED 09:36
DX: K52.9 Noninfective gastroenteritis and colitis, unspecified (principal); E03.9 Hypothyroidism, unspecified; Z88.1 Allergy status to other antibiotic agents; Z79.890 Hormone replacement therapy; Z79.899 Other long term (current) drug therapy; Z90.49 Acquired absence of other specified parts of digestive tract
CPT/HCPCS: 36415; 74177; 74177-26; 80053; 81003; 83605; 83690; 84702; 85025; 86140; 87428-QW; 87651-QW; 96361; 96365; 96366; 96375; 99284; 99284-25; A9270-GY; J1200; J1885; J1956; J2405; J2765; J7030; Q9967